=== PATIENT | female | born 1990 | race Caucasian/White ===

== ENCOUNTER 2016-06-09 19:52 | Emergency (ER) | payer BC, OTHER ==
[~2016-06-09] VITALS: Ht 175.3 cm; Wt 64.0 kg
[2016-06-09] MEDS ORDERED: ONDANSETRON 2MG/ML, 2ML IVPush ONE (20:00)
[2016-06-09] MEDS ORDERED: SODIUM CHLORIDE 0.9% 1,000ML IVBOLUS ONE (20:00)
[2016-06-09] MEDS ORDERED: SODIUM CHLORIDE FLUSH 10ML SYR IVF ONE (20:00)
[2016-06-09 20:19] LABS: HEMOGLOBIN 14.1 g/dL (11.7-16.4)
[2016-06-09] MEDS ORDERED: morphine SULFATE 10 MG/ML, 1ML IVPush ONE ×2 (20:30→22:30)
[2016-06-09 20:31] LABS: BLOOD UREA NITROGEN 11 mg/dL (7-18)
[2016-06-09] MEDS ORDERED: MORPHINE SULFATE 4 MG/ML, 1ML ONE ×2 (20:31→22:23)
[2016-06-09] MEDS ORDERED: ONDANSETRON 2MG/ML, 2ML ONE (20:31)
[2016-06-09] MEDS ORDERED: ALBU90AE IH (20:36)
[2016-06-09] MEDS ORDERED: OMNIPAQUE 350 MG/ML, 100ML BOTTLE ONE (21:24)
[2016-06-10 00:27] VITALS: BP 120/73
[2016-06-12] MEDS ORDERED: OXYC-302 PO (11:07)
== END 2016-06-10 00:32 | disposition home or self-care (01) ==
LOC: ED 21:10
DX: B37.3 Candidiasis of vulva and vagina (principal); N83.202 Unspecified ovarian cyst, left side; R10.31 Right lower quadrant pain
CPT/HCPCS: 36415; 74177; 76830; 80048; 81001; 82040; 84703; 85025; 87210; 87491; 87591; 87808; 96374; 96375; 96376; 99285; J2270; J2405; J7030; Q9967

== ENCOUNTER → 2016-07-04 | Outpatient (CLI) | payer BC ==
[~2016-07-04] MED LIST: ALBU90AE IH; OMNIPAQUE 350 MG/ML, 100ML BOTTLE ONE; OXYC-302 PO
== END | disposition home or self-care (01) ==
LOC: CFH 13:36
PROVIDERS: ATTEND Physical Medicine & Rehabilitation Hospice and Palliative Medicine
DX: N83.202 Unspecified ovarian cyst, left side (principal); R42 Dizziness and giddiness; Z73.3 Stress, not elsewhere classified; Z90.49 Acquired absence of other specified parts of digestive tract
CPT/HCPCS: 74177; Q9967